=== PATIENT | female | born 1970 | race Caucasian/White ===

== ENCOUNTER 2024-07-13 15:04 | Inpatient (IN) | payer MEDICAID ==
[~2024-07-13] VITALS: Ht 167.6 cm; Wt 78.9 kg
--- NOTE | 2024-07-13 15:18 | ED.PDOC ---
GI ASSESSMENT HPI Comments 54 year old female brought in by EMS presents to the ED with a chief complaint of abdominal pain onset yesterday. Per EMS, patient has been experiencing diffused abdominal pain as well as nausea, vomiting, diarrhea for the past day. Patient rates pain 9/10. PMhx COPD, HTN, DM. Denies chest pain, shortness of breath, dizziness, headache, fevers, chills. No other symptoms or modifying factors present at this time. 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 Family History Family History: Reviewed,noncontributory to illness Social History Smoker: Non-Smoker Alcohol: Denies ETOH Use Drugs: Denies Drug Use Lives In: Home Constitutional: denies: chills, diaphoresis, fatigue, fever, malaise, sweats, weakness, others EENTM: denies: blurred vision, double vision, ear bleeding, ear discharge, ear drainage, ear pain, ear ringing, eye pain, eye redness, hearing loss, mouth pain, mouth swelling, nasal discharge, nose bleeding, nose congestion, nose pain, photophobia, tearing, throat pain, throat swelling, voice changes, others Respiratory: denies: cough, hemoptysis, orthopnea, SOB at rest, shortness of breath, SOB with excertion, stridor, wheezing, others Cardiovascular: denies: chest pain, dizzy spells, diaphoresis, Dyspnea on exertion, edema, irregular heart beat, left arm pain, lightheadedness, palpitations, PND, syncope, others Gastrointestinal: reports: abdominal pain, diarrhea, nausea, vomiting; denies: abdomen distended, blood streaked bowels, constipated, dysphagia, difficulty swallowing, hematemesis, melena, poor appetite, poor fluid intake, rectal bleeding, rectal pain, others Genitourinary: denies: abnormal vagina bleeding, burning, dyspareunia, dysuria, flank pain, frequency, hematuria, incontinence, pain, , vagina d ischarge, urgency, others Neurological: denies: dizziness, fainting, headache, left sided numbness, left sided weakness, numbness, paresthesia, pre-existing deficit, right sided numbness, right sided weakness, seizure, speech problems, tingling, tremors, weakness, others Musculoskeletal: denies: back pain, gout, joint pain, joint swelling, muscle pain, muscle stiffness, neck pain, others Integumetry: denies: bruises, change in color, change in hair/nails, dryness, laceration, lesions, lumps, rash, wounds, others Allergic/Immunocompromised: denies: Difficulty Healing, Frequent Infections, Hives, Itching, others Hematologic/Lymphatic: denies: anemia, blood clots, easy bleeding, easy bruising, swollen glands, others Endocrine: denies: excessive hunger, excessive sweating, excessive thirst, excessive urination, flushing, intolerance to cold, intolerance to heat, unexplained weight gain, unexplained weight loss, others Psychiatric: denies: anxiety, bipolar disorder, depression, hopeless, panic disorder, schizophrenia, sleepless, suicidal, others All Other Systems: Reviewed and Negative Physical Exam General Appearance: Moderate Distress, Normal HEENT: Normal ENT Inspection, Pharynx Normal, TMs Normal Neck: Full Range of Motion, Non-Tender, Normal, Normal Inspection Respiratory: Chest Non-Tender, Lungs Clear, No Accessory Muscle Use, No Respiratory Distress, Normal Breath Sounds Cardiovascular: No Edema, No JVD, No Murmur, No Gallop, Normal Peripheral Pulses, Tachycardia Breast Exam: Deferred Gastrointestinal: No Organomegaly, Non Tender, No Pulsatile Mass, Normal Bowel Sounds, Soft Genitalia: Deferred Pelvic: Deferred Rectal: Deferred Extremities: No calf tenderness, Normal capillary refill, Normal inspection, Normal range of motion, Non-tender, No pedal edema Musculoskeletal : Apperance: Normal Neurologic: Alert, collar setter II-XII nml as Tested, No Motor Deficits, Normal Affect, Normal Mood, No Sensory Deficits Cerebellar Function: Normal Reflexes: Normal Skin: Dry, Normal Color, Warm Peripheral Pulses: 3+ Radial (R), 3+ Radial (L) Lymphatic: No Adenopathy Was a procedure done? Was a procedure done?: No GI differential Dx Differential Diagnosis: Constipation, Diverticular disease, Esophagitis, Gastritis/PUD, Gastroenteritis X-Ray, Labs, Meds, VS Vital Signs Date Time Temp Pulse Resp B/P (MAP) Pulse Ox O2 Delivery O2 Flow Rate FiO2 07/13/24 16:21 78 17 145/86 07/13/24 15:07 98.4 111 18 117/79 (92) 98 98.4 Lab Test 07/13/24 15:29 Range/Units White Blood Count 11.5 H 4.4-10.8 10^3/uL Red Blood Count 4.84 4.0-5.20 10^6/uL Hemoglobin 14.5 12.2-16.2 g/dL Hematocrit 43.8 36.0-46.0 % Mean Corpuscular Volume 90.5 80.0-100.0 fL Mean Corpuscular Hemoglobin 30.1 28.0-32.0 pg Mean Corpuscular Hemoglobin Concent 33.2 32.0-36.0 g/dL Red Cell Distribution Width 15.3 H 11.8-14.3 % Platelet Count 159 140-450 10^3/uL Mean Platelet Volume 9.8 6.9-10.8 fL Neutrophils (%) (Auto) 90.4 H 37.0-80.0 % Lymphocytes (%) (Auto) 4.9 L 10.0-50.0 % Monocytes (%) (Auto) 3.8 0.0-12.0 % Eosinophils (%) (Auto) 0.6 0.0-7.0 % Basophils (%) (Auto) 0.3 0.0-2.0 % Neutrophils # (Auto) 10.4 H 1.6-8.6 10 ^3/uL Lymphocytes # (Auto) 0.6 0.4-5.4 10 ^3/uL Monocytes # (Auto) 0.4 0-1.3 10 ^3/uL Eosinophils # (Auto) 0.1 0-0.8 10 ^3/uL Basophils # (Auto) 0 0-0.2 10 ^3/uL Nucleated Red Blood Cells 0.0 % Sodium Level 143 136-145 mmol/L Potassium Level 4.0 3.5-5.1 mmol/L Chloride Level 107 98-107 mmol/L Carbon Dioxide Level 27 20-31 mmol/L Anion Gap 9 5-15 Blood Urea Nitrogen 16 9-23 mg/dL Creatinine 0.92 0.550-1.02 mg/dL Glomerular Filtration Rate Calc 73 >90 mL/min BUN/Creatinine Ratio 17.4 10.0-20.0 Serum Glucose 163 H 74-106 mg/dL Calcium Level 8.7 8.7-10.4 mg/dL Current Medications Medications (Trade) Dose Ordered Sig/Yoon Route Start Time Stop Time Status Last Admin Morphine Sulfate 4 mg ONCE ONCE IV 07/13/24 15:30 07/13/24 15:31 DC 07/13/24 16:21 Ondansetron HCl (Zofran) 4 mg ONCE ONCE IV 07/13/24 15:30 07/13/24 15:31 DC 07/13/24 16:21 Sodium Chloride 1,000 ml @ 1,000 mls/hr Q1H ONCE IV 07/13/24 15:30 07/13/24 16:29 DC 07/13/24 16:22 Patient alert pain Complaining of abdominal pain. Tachycardia. Vitals stable. She is able to ambulate. Establish intravenous access. Was given fluids. Was given Zofran. Was given morphine. Blood sugar elevated. Was given insulin. WBC elevated. Hemoglobin within normal limits. Was given Rocephin. Was given Flagyl. Explained to the patient. Continue monitoring. Time of 1ST Reevaluation: 15:31 Reevaluation 1ST: Unchanged Patient Education/Counseling: Diagnosis, Treatment, Prognosis Family Education/Counseling: No Family Present Departure 1 Departure Time of Disposition: 16:33 Impression: Primary Impression: Uncontrolled diabetes mellitus Qualified Codes: E13.65 - Other specified diabetes mellitus with hyperglycemia Additional Impression: Non-specific colitis Disposition: ADMITTED INPATIENT Admit to: Med Surg Condition: Guarded Critical Care Note Critical Care Time?: No Stability Stability form required: No Heart Score Heart Score: Heart Score Response (Comments) Value History N/A 0 EKG N/A 0 Age N/A 0 Risk Factors N/A 0 Troponin N/A 0 Total 0 I personally scribed for KARI GUZMAN MD ([email or web address]) on 07/13/24 at 15:18. Electronically submitted by Marya Chen ([email or web address]). KARI GUZMAN MD Jul 13, 2024 15:18
[2024-07-13 15:47] LABS: Basophils # (auto) 0 10 ^3/uL (0-0.2); Basophils % (auto) 0.3 % (0.0-2.0); Eosinophils # (auto) 0.1 10 ^3/uL (0-0.8); Eosinophils % (auto) 0.6 % (0.0-7.0); Hematocrit 43.8 % (36.0-46.0); Hemoglobin 14.5 g/dL (12.2-16.2); Lymphocytes # (auto) 0.6 10 ^3/uL (0.4-5.4); Lymphocytes % (auto) 4.9 % (10.0-50.0); Mean Corpuscular Hemoglobin 30.1 pg (28.0-32.0); Mean Corpuscular Hgb Conc. 33.2 g/dL (32.0-36.0); Mean Corpuscular Volume 90.5 fL (80.0-100.0); Monocytes # (auto) 0.4 10 ^3/uL (0-1.3); Monocytes % (auto) 3.8 % (0.0-12.0); Neutrophils # (auto) 10.4 10 ^3/uL (1.6-8.6); Neutrophils % (auto) 90.4 % (37.0-80.0); Platelet Count (auto) 159 10^3/uL (140-450); Red Blood Cells 4.84 10^6/uL (4.0-5.20); Red Cell Distribution Width 15.3 % (11.8-14.3); White Blood Cell 11.5 10^3/uL (4.4-10.8)
[2024-07-13 15:53] LABS: Chloride 107 mmol/L (98-107); Sodium 143 mmol/L (136-145)
[2024-07-13 15:54] LABS: Anion Gap 9 (5-15); Carbon Dioxide 27 mmol/L (20-31)
[2024-07-13 15:59] LABS: BUN/Creatinine Ratio 17.4 (10.0-20.0); Blood Urea Nitrogen 16 mg/dL (9-23)
[2024-07-13 16:05] LABS: Calcium 8.7 mg/dL (8.7-10.4); Glucose 163 mg/dL (74-106)
[2024-07-13] MEDS: ONDANSETRON HCL 4 MG/2 ML VIAL IV ONE (16:21)
[2024-07-13] MEDS: MORPHINE SULFATE 4 MG/ML SYR/VIAL IV ONE (16:21)
[2024-07-13] MEDS: SODIUM CHLORIDE 0.9% 1,000 ML IV ONE ×2 (16:22→17:12)
[2024-07-13] MEDS: cefTRIAXone 1GM/50ML D5W 50 ML IV ONE (16:52)
[2024-07-13] MEDS: metroNIDAZOLE 500MG/100ML 100 ML IV ONE (17:13)
[2024-07-13] MEDS: LORazepam 2MG/ML-1ML VIAL IV ONE (18:03)
[2024-07-13 20:29] VITALS: PULSE 90; RESP 17; O2SAT 95
--- NOTE | 2024-07-13 20:39 | DVH ---
Procedure: CT CT AB PEL WO CON-NO ORAL OR IV 07/13/2024 06:51 PM Indication: colitis Comparison Study: None Technique: Axial images were obtained and reformatted in coronal and sagittal planes. All CT scans at this medical facility are performed using dose modulation techniques as appropriate to a performed e xam including the following: Automated exposure control was utilized; adjustment of the MA and/or KV according to patient size; and use of iterative reconstruction technique. CT Dose: CTDI volume is 14. 48 mGy. Dose-length product is 828.8 mGy*cm FINDINGS: Lower Chest: Unremarkable. Hepatobiliary: Gallbladder is surgically absent. Spleen: Unremarkable. Pancreas: Unremarkable. Adrenal Glands: Unremarkable. tract: The kidneys are normal in size bilaterally without hydronephrosis or nephrolithiasis. The u rinary bladder is unremarkable. GI tract: The stomach is grossly normal in appearance. No evidence of small bowel obstruction. Scatte red colonic diverticula are noted without evidence of diverticulitis. The appendix is not visualized. No inflammatory change is noted in the right lower quadrant. Lymphatics: No mesenteric, retroperitoneal or periportal lymphadenopathy. Vasculature: Aorta is normal in caliber. Scattered calcified plaques are noted. Pelvic Organs: Unremarkable Bones/soft tissues: No acute abnormality. Other: None. IMPRESSION: 1. Liquid stool in the lumen of the ascending colon without colonic wall thickening or pericholecysti c inflammation. The findings may reflect diarrheal state. There is no CT evidence of colitis at this time. No signs of bowel obstruction or enteritis.
[2024-07-13] MEDS ORDERED: ONDANSETRON HCL 4 MG/2 ML VIAL IV PRN (21:00)
[2024-07-13] MEDS ORDERED: DEXTROSE (50%) 50ML SYRG IV PRN (21:00)
--- NOTE | 2024-07-13 21:19 | DVHHP2 ---
History of Present Illness Reason for Visit: Abdominal pain History of Present Illness 54-year-old female presents evaluation of patient reports a one day history of sharp epigastric nonradiating abdominal pain with associated vomiting diarrhea. She denies melena. No fever or chills. No other Acute complaints reported. Past Medical History Hypertension COPD and diabetes mellitus Past Surgical History Tubal ligation Family History Noncontributory Smoke: No ALCOHOL: none Drugs: None Lives: with Family Review of Systems Review of Systems Review of systems are currently negative otherwise addressed in HPI. Allergies: Coded Allergies: NO KNOWN ALLERGIES (Unverified , 07/13/24) Medications Current Medications Medications Dose Ordered Sig/Yoon Route Start Time Stop Time Status Last Admin Dose Admin Metronidazole 500 mg Q8HR PO 07/13/24 22:00 UNV Acetaminophen/ Hydrocodone Bitart 1 tab Q4HP PRN PO 07/13/24 21:00 UNV Ondansetron HCl 4 mg Q4HP PRN IV 07/13/24 21:00 UNV Acetaminophen 650 mg Q6HP PRN PO 07/13/24 21:00 UNV Diagnostic Test (Pha) 1 strip ACHS 07/13/24 22:00 UNV Insulin Human Regular ACHS SC 07/13/24 22:00 UNV Dextrose 50 ml UD PRN IV 07/13/24 21:00 UNV Exam Vital Signs Vital Signs Date Time Temp Pulse Resp B/P (MAP) Pulse Ox O2 Delivery O2 Flow Rate FiO2 07/13/24 20:29 90 17 95 Room Air* 0 21 07/13/24 20:27 98.3 118/58 (78) 98.3 Exam Gen: 54-year-old female distress Skin: Warm, dry, normal color and texture, no rash. HEENT: Normocephalic atraumatic, mucous membranes moist and pink. Neck: Cervical and supraclavicular nodes normal without enlargement, trachea is midline, thyroid gland is normal without masses. Pulmonary: Clear to auscultation and percussion bilaterally. Cardiac: Regular rate and rhythm. No murmur Abdomen: Soft, epigastric, nondistended, bowel sounds present all 4 quadrants, no guarding, no rigidity, no organomegaly. Extremities: No cyanosis, clubbing, no edema Neuro: Cranial nerves II through XII grossly intact, normal affect and speech, no focal motor deficits. Labs/Xrays ORDERING PHYSICIAN: KARI GUZMAN MD PROCEDURE(s): ABPL - CT AB PEL WO CON-NO ORAL OR IV REASON: colitis ORDER NUMBER(s): [id number], ACCESSION NUMBER(s): [id number] Procedure: CT CT AB PEL WO CON-NO ORAL OR IV 07/13/2024 06:51 PM Indication: colitis Comparison Study: None Technique: Axial images were obtained and reformatted in coronal and sagittal planes. All CT scans at this medical facility are performed using dose modulation techniques as appropriate to a performed exam including the following: Automated exposure control was utilized; adjustment of the MA and/or KV according to patient size; and use of iterative reconstruction technique. CT Dose: CTDI volume is 14.48 mGy. Dose-length product is 828.8 mGy*cm FINDINGS: Lower Chest: Unremarkable. Hepatobiliary: Gallbladder is surgically absent. Spleen: Unremarkable. Pancreas: Unremarkable. Adrenal Glands: Unremarkable. tract: The kidneys are normal in size bilaterally without hydronephrosis or nephrolithiasis. The urinary bladder is unremarkable. GI tract: The stomach is grossly normal in appearance. No evidence of small bowel obstruction. Scattered colonic diverticula are noted without evidence of diverticulitis. The appendix is not visualized. No inflammatory change is noted in the right lower quadrant. Lymphatics: No mesenteric, retroperitoneal or periportal lymphadenopathy. Vasculature: Aorta is normal in caliber. Scattered calcified plaques are noted. Pelvic Organs: Unremarkable Bones/soft tissues: No acute abnormality. Other: None. IMPRESSION: 1. Liquid stool in the lumen of the ascending colon without colonic wall thickening or pericholecystic inflammation. The findings may reflect diarrheal state. There is no CT evidence of colitis at this time. No signs of bowel obstruction or enteritis. Labs Test 07/13/24 15:29 Range/Units White Blood Count 11.5 H 4.4-10.8 10^3/uL Red Blood Count 4.84 4.0-5.20 10^6/uL Hemoglobin 14.5 12.2-16.2 g/dL Hematocrit 43.8 36.0-46.0 % Mean Corpuscular Volume 90.5 80.0-100.0 fL Mean Corpuscular Hemoglobin 30.1 28.0-32.0 pg Mean Corpuscular Hemoglobin Concent 33.2 32.0-36.0 g/dL Red Cell Distribution Width 15.3 H 11.8-14.3 % Platelet Count 159 140-450 10^3/uL Mean Platelet Volume 9.8 6.9-10.8 fL Neutrophils (%) (Auto) 90.4 H 37.0-80.0 % Lymphocytes (%) (Auto) 4.9 L 10.0-50.0 % Monocytes (%) (Auto) 3.8 0.0-12.0 % Eosinophils (%) (Auto) 0.6 0.0-7.0 % Basophils (%) (Auto) 0.3 0.0-2.0 % Neutrophils # (Auto) 10.4 H 1.6-8.6 10 ^3/uL Lymphocytes # (Auto) 0.6 0.4-5.4 10 ^3/uL Monocytes # (Auto) 0.4 0-1.3 10 ^3/uL Eosinophils # (Auto) 0.1 0-0.8 10 ^3/uL Basophils # (Auto) 0 0-0.2 10 ^3/uL Nucleated Red Blood Cells 0.0 % Sodium Level 143 136-145 mmol/L Potassium Level 4.0 3.5-5.1 mmol/L Chloride Level 107 98-107 mmol/L Carbon Dioxide Level 27 20-31 mmol/L Anion Gap 9 5-15 Blood Urea Nitrogen 16 9-23 mg/dL Creatinine 0.92 0.550-1.02 mg/dL Glomerular Filtration Rate Calc 73 >90 mL/min BUN/Creatinine Ratio 17.4 10.0-20.0 Serum Glucose 163 H 74-106 mg/dL Calcium Level 8.7 8.7-10.4 mg/dL Assessment/Plan Assessment/Plan Assessment Acute abdominal pain Possible colitis Diabetes mellitus Legally blind Leukocytosis Admit the patient to [facility] to the hospitalist yl Stool culture pending Pain management Resume home medications Continue treatment per orders. Plan discussed with: Patient My Orders Orders - RAUL ALY Procedure Category Date Status Time Admit ADMIT 07/13/24 Transmitted 19:43 Metronidazole Tablet PHA 07/13/24 Logged (Flagyl Tablet) 22:00 Stool Bacterial DAQUAN 07/13/24 Uncollected Culture 20:59 Clostridium Difficile DAQUAN 07/13/24 Uncollected Toxin 20:59 Basic Metabolic Panel LAB 07/14/24 Verified 04:00 Hydrocodone-Acet PHA 07/13/24 Logged 5/325mg Tab ([place] 21:00 Ondansetron Hcl PHA 07/13/24 Logged (Zofran) 21:00 Complete Blood Count LAB 07/14/24 Verified 04:00 Condition: Stable ROD 07/13/24 In Process 20:59 Acetaminophen Tablet PHA 07/13/24 Logged (Tylenol Tablet) 21:00 Clear Liq Diet DIET 07/14/24 Transmitted Breakfast Bedrest With Bathroom ROD 07/13/24 In Process Privileg 20:59 Glucose Blood PHA 07/13/24 Logged (Accu-Chek Comfort 22:00 Insulin R (Human) PHA 07/13/24 Logged (Insulin R) 22:00 Dextrose 50% Syringe PHA 07/13/24 Logged 21:00 Date of Service: Jul 13, 2024 Billing Provider: RAUL ALY Common Visit Codes: [id number] INP/OBS CARE (MOD) RAUL ALY Jul 13, 2024 21:19
[2024-07-13] MEDS: InsuLIN REG 1unit/0.01ml Soln (100units/ml) SC SCH (22:00)
[2024-07-13] MEDS: metroNIDAZOLE 500 MG TAB PO SCH (22:10)
[2024-07-13] MEDS: ACCU-CHEK COMFORT CURVE STRIP VI SCH (22:10)
[2024-07-14] VITALS (9 sets, daily range): BP systolic 109–142; BP diastolic 52–82; PULSE 74–107; RESP 16–20; TEMP 97–98.4; O2SAT 95–98
[2024-07-14] MEDS: HYDROcodone-ACET 5/325MG TAB PO PRN (00:12)
[2024-07-14 06:05] LABS: Basophils # (auto) 0 10 ^3/uL (0-0.2); Basophils % (auto) 0.4 % (0.0-2.0); Eosinophils # (auto) 0.1 10 ^3/uL (0-0.8); Eosinophils % (auto) 1.7 % (0.0-7.0); Hematocrit 36.4 % (36.0-46.0); Hemoglobin 12.5 g/dL (12.2-16.2); Lymphocytes # (auto) 1.5 10 ^3/uL (0.4-5.4); Lymphocytes % (auto) 21.3 % (10.0-50.0); Mean Corpuscular Hemoglobin 30.9 pg (28.0-32.0); Mean Corpuscular Hgb Conc. 34.3 g/dL (32.0-36.0); Mean Corpuscular Volume 90.3 fL (80.0-100.0); Monocytes # (auto) 0.6 10 ^3/uL (0-1.3); Monocytes % (auto) 8.6 % (0.0-12.0); Neutrophils # (auto) 4.9 10 ^3/uL (1.6-8.6); Nucleated Red Blood Cells % 0.1 %; Platelet Count (auto) 120 10^3/uL (140-450); Red Blood Cells 4.04 10^6/uL (4.0-5.20); Red Cell Distribution Width 15.1 % (11.8-14.3); White Blood Cell 7.2 10^3/uL (4.4-10.8)
[2024-07-14 06:23] LABS: Anion Gap 9 (5-15); Calcium 9.1 mg/dL (8.7-10.4); Carbon Dioxide 25 mmol/L (20-31); Potassium 3.6 mmol/L (3.5-5.1); Sodium 141 mmol/L (136-145)
[2024-07-14 06:26] LABS: Chloride 107 mmol/L (98-107)
[2024-07-14 06:29] LABS: BUN/Creatinine Ratio 20.6 (10.0-20.0); Blood Urea Nitrogen 14 mg/dL (9-23); Glucose 91 mg/dL (74-106)
--- NOTE | 2024-07-14 11:09 | DVHPNRES ---
Progress Note Date Seen: Jul 14, 2024 Resident Creating Document: LILIA YUAN RESIDENT Has the PT tested + for MRSA If YES, has PT been informed?: No Medical Necessity Reason Pt with a Central, PICC or Fol: No Subjective Review of Systems A 54-year-old female with a past medical history of blindness, COPD, hypertension, and diabetes mellitus presents to the ED with one day of sharp, diffuse abdominal pain, rated 9/10 in severity. Per EMS and patient report, the pain began 2 days ago and is associated with nausea, vomiting, and diarrhea. The pain is sharp, non-radiating, and has been persistent since onset. She denies chest pain, shortness of breath, dizziness, headache, fevers, chills, or melena. No recent sick contacts, travel, or dietary changes. There are no alleviating or aggravating factors. PMH: COPD, HTN, Diabetes Mellitus, Psychiatric disorder? 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 Lives in assisted living [facility] Allergies: No known allergies Medications (per external med history): Hydrocodone-acetaminophen, Invega Sustenna (antipsychotic), Trazodone, Quetiapine, Celecoxib, Gabapentin, Cyclobenzaprine, Vitamin B1, Folic acid Objective vital signs Vital Sign Date Time Temp Pulse Resp B/P (MAP) Pulse Ox O2 Delivery O2 Flow Rate FiO2 07/14/24 09:00 98.3 107 20 142/82 (102) 98 98.3 07/14/24 08:00 Room Air* 0 21 Total Intake and Output 07/13/24 07/13/24 07/14/24 15:00 23:00 07:00 Intake Total 200 ml 100 ml Output Total 0 ml Balance 200 ml 100 ml medications Current Medications Medications Dose Ordered Sig/Yoon Route Start Time Stop Time Status Last Admin Dose Admin Metronidazole 500 mg Q8HR PO 07/13/24 22:00 07/14/24 06:28 500 MG Acetaminophen/ Hydrocodone Bitart 1 tab Q4HP PRN PO 07/13/24 21:00 07/14/24 08:38 1 TAB Ondansetron HCl 4 mg Q4HP PRN IV 07/13/24 21:00 Acetaminophen 650 mg Q6HP PRN PO 07/13/24 21:00 Diagnostic Test (Pha) 1 strip ACHS 07/13/24 22:00 07/14/24 06:28 1 STRIP Insulin Human Regular ACHS SC 07/13/24 22:00 Dextrose 50 ml UD PRN IV 07/13/24 21:00 Examination EENT: Normal ENT Inspection, Pharynx Normal, TMs Normal Neck: Full Range of Motion, Non-Tender, Normal, Normal Inspection Respiratory: Chest Non-Tender, Lungs Clear Normal Breath Sounds Cardiovascular: No Edema, No JVD, No Murmur, No Gallop, Normal Peripheral Pulses, Tachycardia Breast Exam: Deferred Gastrointestinal: No Organomegaly, Non Tender, No Pulsatile Mass, Normal Bowel Sounds, Soft Extremities: No calf tenderness, Normal capillary refill, Normal inspection, Normal range of motion, Non-tender, No pedal edema Neurologic: Alert, bait digger II-XII nml as Tested, No Motor Deficits, Normal Affect, Normal Mood, No Sensory Deficits laboratory and microbiology Laboratory Tests 07/14/24 05:27 Test 07/14/24 05:27 Range/Units Serum Glucose 91 74-106 mg/dL Labs and/or images reviewed: Labs reviewed by me, Image(s) reviewed by me Problem List/Assessment/Plan Problem List/Assessment/Plan #Intractable abdominal pain #Possible infectious colitis #Legally blind #Leukocytosis resolved #COPD, stable #Psychiatric disorder #Anxiety #HTN #Smoker of tobacco [place] for pain Xanax PRN Lorazepam PRN Nicotine patch metronidazole IV PT evaluation Counseled on tobacco use cessation for 17 minutes Possible DC tomorrow Goals of care discussed with the patient for 20 minutes; full code Case discussed with Dr. Ruiz Plan discussed with: Patient, Other (rn) Addendum Addendum Addendum I was physically present for the fountain portions of the service provided to patient by THE RESIDENT. I have reviewed the documentation, discussed the case with resident and agree with the resident's documentation except as noted. Also the patient's clinical case was discussed with the patient's nurse. This medical document was created using an electronic medical record system with computerized dictation system. Although this document has been carefully reviewed, there might still be some phonetic and typographical errors. These areas are purely typographical due to imperfections of the software programs, and do not reflect any compromise in the patient's medical care. Late signature. Date of Service: Jul 14, 2024 Billing Provider: RAYSA RUIZ MD Common Visit Codes: [id number] INP/OBS CARE(HIGH) Secondary Visit Codes: [id number] CHNG SMOKING >10MIN (17 minutes), 83444- ADVANCED CARE PLAN 30 MINUTES (20 minutes) LILIA YUAN RESIDENT Jul 14, 2024 11:09 RAYSA RUIZ MD Jul 15, 2024 05:05
[2024-07-14] MEDS: ALPRAZolam 0.25 MG TAB PO PRN (15:22)
[2024-07-14] MEDS: LORazepam 2MG/ML-1ML VIAL IV ONE ×2 (19:00→19:50)
[2024-07-14] MEDS: NICOTINE 14 MG/24HR TOPICAL PATCH TD ONE (19:50)
[2024-07-14 20:10] LABS: Urine Bacteria None Seen /hpf (None Seen)
[2024-07-14 20:26] LABS: Urine Amorphous Crystal FEW /hpf (None Seen); Urine Blood Negative /uL (Negative); Urine Clarity Clear (Clear); Urine Color Yellow (Yellow); Urine Protein, UAD Negative (Negative); Urine Specific Gravity 1.012 (1.001-1.035); Urine Squamous Epithelial Cell FEW /hpf (<5); Urine Urobilinogen 3 mg/dL (Negative); Urine WBC < 1 /HPF (0-5); Urine pH 6.5 (5.0-9.0)
[2024-07-14 22:59] LABS: Amphetamine Screen, Urine Neg (NEGATIVE); Barbiturate Scree,Urine Neg (NEGATIVE); Benzodiazephine Screen, Urine Neg (NEGATIVE); Cannabinoid Screen, Urine Pos (NEGATIVE); Cocaine Screen, Urine Neg (NEGATIVE); Opiate Scree,Urine Neg (NEGATIVE); Phencyclidine Screen, Urine Neg (NEGATIVE)
[2024-07-15 01:00] VITALS: BP 124/70; PULSE 76; RESP 18; TEMP 97.9; O2SAT 97
[2024-07-15] MEDS: LORazepam 2MG/ML-1ML VIAL IV PRN (01:46)
[2024-07-15 05:00] VITALS: BP 118/65; PULSE 83; RESP 19; TEMP 97.7; O2SAT 98
[2024-07-15 05:51] LABS: Basophils # (auto) 0 10 ^3/uL (0-0.2); Basophils % (auto) 0.6 % (0.0-2.0); Eosinophils # (auto) 0.4 10 ^3/uL (0-0.8); Eosinophils % (auto) 5.6 % (0.0-7.0); Hematocrit 37.2 % (36.0-46.0); Hemoglobin 12.9 g/dL (12.2-16.2); Lymphocytes # (auto) 2.1 10 ^3/uL (0.4-5.4); Lymphocytes % (auto) 31.1 % (10.0-50.0); Mean Corpuscular Hemoglobin 31.2 pg (28.0-32.0); Mean Corpuscular Hgb Conc. 34.7 g/dL (32.0-36.0); Monocytes # (auto) 0.8 10 ^3/uL (0-1.3); Monocytes % (auto) 12.1 % (0.0-12.0); Neutrophils # (auto) 3.4 10 ^3/uL (1.6-8.6); Neutrophils % (auto) 50.6 % (37.0-80.0); Platelet Count (auto) 124 10^3/uL (140-450); Red Blood Cells 4.14 10^6/uL (4.0-5.20); Red Cell Distribution Width 14.7 % (11.8-14.3); White Blood Cell 6.7 10^3/uL (4.4-10.8)
[2024-07-15] MEDS: ACETAMINOPHEN 325 MG TAB PO PRN (05:52)
[2024-07-15 06:06] LABS: Anion Gap 6 (5-15); Calcium 9.3 mg/dL (8.7-10.4); Carbon Dioxide 25 mmol/L (20-31); Chloride 106 mmol/L (98-107); Potassium 3.9 mmol/L (3.5-5.1); Sodium 137 mmol/L (136-145)
[2024-07-15 06:07] LABS: BUN/Creatinine Ratio 11.3 (10.0-20.0); Glucose 88 mg/dL (74-106)
[2024-07-15 06:08] LABS: Total Protein 6.5 g/dL (5.7-8.2)
[2024-07-15 06:09] LABS: Albumin 4.1 g/dL (3.2-4.8)
[2024-07-15 06:10] LABS: Bilirubin, Total 0.6 mg/dL (0.2-1.0)
[2024-07-15 06:21] LABS: Alanine Aminotransferase 191 U/L (7-40); Alkaline Phosphatase 158 U/L (46-116); Aspartate Aminotransferase 89 U/L (13-40); Blood Urea Nitrogen 8 mg/dL (9-23)
[2024-07-15 08:00] VITALS: PULSE 80; RESP 18; O2SAT 96
[2024-07-15 08:30] VITALS: BP 123/66; PULSE 80; RESP 18; TEMP 98.3; O2SAT 96
[2024-07-15] MEDS ORDERED: ACET1CAP14 PO (09:51)
[2024-07-15] MEDS: NICOTINE 14 MG/24HR TOPICAL PATCH TD SCH (10:37)
[2024-07-15 10:40] VITALS: BP 123/66; PULSE 80; RESP 19; TEMP 98.3; O2SAT 96
--- NOTE | 2024-07-15 17:17 | DVHDSRES ---
Discharge Summary Date of Admission Resident Creating Document: LILIA YUAN RESIDENT Jul 13, 2024 at 19:43 Date of Discharge: Jul 15, 2024 Admitting Diagnosis Intractable abdominal pain Labs/Diagnostic Data: Laboratory Results Test 07/15/24 05:03 07/14/24 21:20 07/14/24 19:58 07/14/24 05:27 White Blood Count 6.7 10^3/uL (4.4-10.8) Red Blood Count 4.14 10^6/uL (4.0-5.20) Hemoglobin 12.9 g/dL (12.2-16.2) Hematocrit 37.2 % (36.0-46.0) Mean Corpuscular Volume 90.0 fL (80.0-100.0) Mean Corpuscular Hemoglobin 31.2 pg (28.0-32.0) Mean Corpuscular Hemoglobin Concent 34.7 g/dL (32.0-36.0) Red Cell Distribution Width 14.7 % (11.8-14.3) Platelet Count 124 10^3/uL (140-450) Mean Platelet Volume 10.6 fL (6.9-10.8) Neutrophils (%) (Auto) 50.6 % (37.0-80.0) Lymphocytes (%) (Auto) 31.1 % (10.0-50.0) Monocytes (%) (Auto) 12.1 % (0.0-12.0) Eosinophils (%) (Auto) 5.6 % (0.0-7.0) Basophils (%) (Auto) 0.6 % (0.0-2.0) Neutrophils # (Auto) 3.4 10 ^3/uL (1.6-8.6) Lymphocytes # (Auto) 2.1 10 ^3/uL (0.4-5.4) Monocytes # (Auto) 0.8 10 ^3/uL (0-1.3) Eosinophils # (Auto) 0.4 10 ^3/uL (0-0.8) Basophils # (Auto) 0 10 ^3/uL (0-0.2) Nucleated Red Blood Cells 0.0 % Sodium Level 137 mmol/L (136-145) Potassium Level 3.9 mmol/L (3.5-5.1) Chloride Level 106 mmol/L (98-107) Carbon Dioxide Level 25 mmol/L (20-31) Anion Gap 6 (5-15) Blood Urea Nitrogen 8 mg/dL (9-23) Creatinine 0.71 mg/dL (0.550-1.02) Glomerular Filtration Rate Calc 100 mL/min (>90) BUN/Creatinine Ratio 11.3 (10.0-20.0) Serum Glucose 88 mg/dL (74-106) Calcium Level 9.3 mg/dL (8.7-10.4) Total Bilirubin 0.6 mg/dL (0.2-1.0) Aspartate Amino Transferase (AST) 89 U/L (13-40) Alanine Aminotransferase (ALT) 191 U/L (7-40) Alkaline Phosphatase 158 U/L (46-116) Total Protein 6.5 g/dL (5.7-8.2) Albumin 4.1 g/dL (3.2-4.8) POC Glucose 92 mg/dl (70-106) Urine Color Yellow (Yellow) Urine Clarity Clear (Clear) Urine pH 6.5 (5.0-9.0) Urine Specific [place] 1.012 (1.001-1.035) Urine Protein Negative (Negative) Urine Ketones Negative (Negative) Urine Blood Negative /uL (Negative) Urine Nitrite Negative (Negative) Urine Bilirubin Negative (Negative) Urine Urobilinogen 3 mg/dL (Negative) Urine Leukocyte Esterase Negative /uL (Negative) Urine RBC 7 /hpf (0 - 4) Urine Microscopic WBC < 1 /HPF (0-5) Urine Squamous Epithelial Cells Few /hpf (<5) Urine Amorphous Crystals Few /hpf (None Seen) Urine Bacteria None seen /hpf (None Seen) Urine Glucose Normal mg/dL (Normal) Urine Opiates Screen Neg (NEGATIVE) Urine Fentanyl Screen Neg (NEGATIVE) Urine Barbiturates Screen Neg (NEGATIVE) Urine Phencyclidine Screen Neg (NEGATIVE) Urine Amphetamines Screen Neg (NEGATIVE) Urine Benzodiazepines Screen Neg (NEGATIVE) Urine Cocaine Screen Neg (NEGATIVE) Urine Cannabinoids Screen Pos (NEGATIVE) Hemoglobin A1c 5.0 % A1C (<5.7) Thyroid Stimulating Hormone (TSH) 3.37 uIU/mL (0.55-4.78) Other Laboratory Tests 07/15/24 05:03 Brief Hx & Hospital Course: A 54-year-old female with a history of COPD, HTN, DM, psychiatric disorder, and blindness, presented to the ED with 1 day of sharp, non-radiating diffuse abdominal pain (rated 9/10), associated with nausea, vomiting, and diarrhea. The pain had been ongoing for 2 days per EMS. No fevers, chills, melena, or recent travel. Patient was admitted for intractable abdominal pain, suspected infectious colitis. Infectious work-up initiated, including IV metronidazole. Leukocytosis noted on admission but resolved. Patient remained afebrile and hemodynamically stable throughout admission. Pain managed with [place]; also received PRN anxiolytics (Xanax, Lorazepam) and nicotine patch for smoking cessation. PT was consulted for mobility evaluation and they recommended home health services for home PT. Counseling on smoking cessation was provided during admission. No surgical intervention required. Physical exam on the day of discharge General: Alert, oriented, awake, not in distress HEENT: Normal ENT Inspection, Pharynx Normal, TMs Normal Neck: Full Range of Motion, Non-Tender, Normal, Normal Inspection Respiratory: Chest Non-Tender, Lungs Clear Normal Breath Sounds Cardiovascular: No Edema, No JVD, No Murmur, No Gallop, Normal Peripheral Pulses, Tachycardia Breast Exam: Deferred Gastrointestinal: No Organomegaly, Non Tender, No Pulsatile Mass, Normal Bowel Sounds, Soft Extremities: No calf tenderness, Normal capillary refill, Normal inspection, Normal range of motion, Non-tender, No pedal edema Neurologic: Alert, soil analyst II-XII nml as Tested, No Motor Deficits, Normal Affect, Normal Mood, No Sensory Deficits Case discussed with Dr Ruiz Operations or Procedures Procedure: CT CT AB PEL WO CON-NO ORAL OR IV 07/13/2024 06:51 PM Indication: colitis Comparison Study: None Technique: Axial images were obtained and reformatted in coronal and sagittal planes. All CT scans at this medical facility are performed using dose modulation techniques as appropriate to a performed exam including the following: Automated exposure control was utilized; adjustment of the MA and/or KV according to patient size; and use of iterative reconstruction technique. CT Dose: CTDI volume is 14.48 mGy. Dose-length product is 828.8 mGy*cm FINDINGS: Lower Chest: Unremarkable. Hepatobiliary: Gallbladder is surgically absent. Spleen: Unremarkable. Pancreas: Unremarkable. Adrenal Glands: Unremarkable. tract: The kidneys are normal in size bilaterally without hydronephrosis or nephrolithiasis. The urinary bladder is unremarkable. GI tract: The stomach is grossly normal in appearance. No evidence of small bowel obstruction. Scattered colonic diverticula are noted without evidence of diverticulitis. The appendix is not visualized. No inflammatory change is noted in the right lower quadrant. Lymphatics: No mesenteric, retroperitoneal or periportal lymphadenopathy. Vasculature: Aorta is normal in caliber. Scattered calcified plaques are noted. Pelvic Organs: Unremarkable Bones/soft tissues: No acute abnormality. Other: None. IMPRESSION: 1. Liquid stool in the lumen of the ascending colon without colonic wall thickening or pericholecystic inflammation. The findings may reflect diarrheal state. There is no CT evidence of colitis at this time. No signs of bowel obstruction or enteritis. Condition at Discharge: Stable Final Diagnosis/Problems List #Intractable abdominal pain #Suspected sepsis due to possible infectious colitis #Legally blind #Leukocytosis resolved #COPD, stable #Psychiatric disorder #Anxiety #HTN #Smoker of tobacco Discharge Disposition: Home with Health Services Discharge Instruct/Medications Diet: Consistent carbohydrate, Cardiac 2g Na,low cholest Activity: No Restrictions, As Tolerated Follow Up/Referral: Discharge clinic within one week or primary care provider within one week Medications: As per EMR Discharge Statement: "Patient was advised to return to the ER or call 911 if any headaches, dizziness, shortness of breath, chest pain, abdominal pain, bleeding, fevers, or worsening of medical condition. Patient was counseled about treatment plan, medications, possible side effects, patientverbalized understanding. All questions were answered to the best of my ability. This discharge took greater then 30 minutes in planning, reviewing documentation, counseling the patient, and discussing with other team members." ASSESSMENT ASSESSMENT Assessment #Intractable abdominal pain #Possible infectious colitis #Legally blind #Leukocytosis resolved #COPD, stable #Psychiatric disorder #Anxiety #HTN #Smoker of tobacco Addendum Addendum Addendum I was physically present for the fountain portions of the service provided to patient by THE RESIDENT. I have reviewed the documentation, discussed the case with resident and agree with the resident's documentation except as noted. Also the patient's clinical case was discussed with the patient's nurse. This medical document was created using an electronic medical record system with computerized dictation system. Although this document has been carefully reviewed, there might still be some phonetic and typographical errors. These areas are purely typographical due to imperfections of the software programs, and do not reflect any compromise in the patient's medical care. Late signature. Date of Service: Jul 15, 2024 Billing Provider: RAYSA RUIZ MD Common Visit Codes: 93076-HZW/OBS DISCH DAY >30min LILIA YUAN Jul 15, 2024 17:17 RAYSA RUIZ MD Jul 16, 2024 06:28
[2024-07-17] MEDS ORDERED: INFLUENZA TRIVALENT 2024-2025 0.5 ML INJ IM ONE (05:45)
[2024-07-17] MEDS ORDERED: PNEUMOCOCCAL VACC POLYS 25 MCG/0.5 ML VIAL IM ONE (05:45)
== END 2024-07-15 11:40 | disposition home or self-care (01) | DRG 249 ==
LOC: EDUNIT# 15:04 → EDBD 15:04 → ER 15:04 → OVERFLOW 19:43 → EAST 07-14 03:30
PROVIDERS: ADMIT Internal Medicine; ATTEND Emergency Medicine
DX: A09 Infectious gastroenteritis and colitis, unspecified (principal); E11.65 Type 2 diabetes mellitus with hyperglycemia; F41.9 Anxiety disorder, unspecified; F99 Mental disorder, not otherwise specified; H54.8 Legal blindness, as defined in USA; F17.200 Nicotine dependence, unspecified, uncomplicated; J44.9 Chronic obstructive pulmonary disease, unspecified; I10 Essential (primary) hypertension; Z71.6 Tobacco abuse counseling
CPT/HCPCS: 36415; 74176; 80048; 80053; 80307; 81001; 82962; 83036; 84443; 85025; 87493; 97162; G0378; J2405; J3490